=== PATIENT | female | born 1985 | race Caucasian/White ===

== ENCOUNTER 2018-10-01 09:44 | Observation (INO) | payer OTHER ==
[~2018-10-01] VITALS: Ht 172.7 cm; Wt 114.8 kg
[~2018-10-01 09:44] MED LIST: BIRTH CONTROL PO; HYDROCHLOROTH12.5 M1 PO
[2018-10-01 10:21] LABS: HEMATOCRIT 37.6 % (37.0-47.0); HEMOGLOBIN 13.2 gm/dL (12.0-15.0)
[2018-10-01 15:10] VITALS: BP 148/77
[2018-10-01] MEDS ORDERED: APRI1 EACH PO (15:47)
[2018-10-01 16:30] VITALS: BP 138/85
--- NOTE | 2018-10-01 16:32 | EKG ---
[place] [address] ELECTROCARDIOGRAM REPORT Name: MEDARDO SAHU CRYSTAL Room: [address] M.R.#: [id number] Admission: 10/01/18 Attend Phys: Magen Cheema DO Discharge: Date of : 85 Report #: [id number] THIS REPORT FOR: //name// [facility] Test Date: 2018-10-01 Test Time: 10:07:29 Pat Name: MEDARDO SAHU Department: Room: [facility] Gender: F Computer Numerical Control Machinist: : 1985 Requested By: Shahid Torres Order Number: [id number] Sheree MD: Benito Ambrose Measurements Intervals [place] Rate: 74 P: 8 IL: 140 QRS: 7 QRSD: 94 T: 1 QT: 412 QTc: 457 Interpretive Statements Sinus rhythm No previous ECG available for comparison Electronically Signed On 10-01-2018 16:32:39 CDT by Benito Ambrose [email or web address] <ELECTRONICALLY SIGNED> By: Benito Ambrose MD, [facility] 10/01/18 1632 1007 1007 Benito Ambrose MD, FACC /EPI
--- NOTE | 2018-10-01 17:44 | NUR ---
PATIENT RESTING IN BED. PATIENT HAD LAP AMBIKA THIS AM. PATIENT ARRIVED FROM PACU AND SETTLED TO ROOM THIS AFTERNOON. PATIENT HAS HAD COMPLAINTS OF PAIN X 1, TREATED WITH HYDROCODONE. PATIENT IS TOLERATING LOW FAT DIET. PATIENT DENIES ANY NEEDS AT THIS TIME. CALL LIGHT WITHIN REACH. WILL CONTINUE TO MONITOR.
[2018-10-01 20:00] VITALS: BP 130/79
[2018-10-02] VITALS: BP 115/68
[2018-10-02 04:16] LABS: ABSOLUTE LYMPHOCYTES 1.3 thou/uL (0.8-5.3); ABSOLUTE MONOCYTES 0.6 thou/uL (0.0-1.2); ABSOLUTE NEUTROPHILS 7.2 thou/uL (1.6-8.1); BASOPHILS 0.1 %; HEMOGLOBIN 12.2 gm/dL (12.0-15.0); LYMPHOCYTES 14.3 %; MCH 31.8 pg (26.0-34.0); MCV 88.4 fL (80.0-100.0); MONOCYTES 6.3 %; MPV 6.8 fl. (7.2-11.1); NUCLEATED RBCS 0 /100WBC; PLATELET COUNT* 305 thou/uL (150-400); POLYS 79.3 %; RBC 3.84 mil/uL (4.20-5.00); RDW-CV 11.8 % (10.5-14.5); WBC 9.1 thou/uL (4.0-11.0)
[2018-10-02 04:19] LABS: ALBUMIN 2.7 g/dL (3.4-5.0); CALCIUM 7.9 mg/dL (8.5-10.1); CREATININE 0.9 mg/dL (0.6-1.3); POTASSIUM 3.5 mmol/L (3.5-5.1); TOTAL BILIRUBIN 0.2 mg/dL (<0.1-1.0); TOTAL PROTEIN 6.4 g/dL (6.4-8.2)
[2018-10-02 04:25] VITALS: BP 113/70
--- NOTE | 2018-10-02 05:43 | NUR ---
ASSUMED CARE AT 1930. PATIENT RESTED THROUGH THE NIGHT. VOIDED PER TOILET. AT BEDSIDE THROUGH NIGHT. IVF/IVABX INFUSING WITHOUT DIFF. MEDICATED ONCE FOR PAIN WITH RELIEF. O2 2L/NC THROUGH NIGHT. CALL LITE IN REACH. HOURLY ROUNDS CONTINUE.
[2018-10-02 09:28] VITALS: BP 124/80
[2018-10-02] MEDS ORDERED: HYDROCODON-ACE1 EAC7 PO (12:56)
[2018-10-02] MEDS ORDERED: COLACE100 MG PO (12:57)
[2018-10-02] MEDS ORDERED: MIRALAX17 GM PO (12:58)
[2018-10-02 13:01] VITALS: BP 124/80
--- NOTE | 2018-10-02 13:09 | OP ---
[address] [address] OPERATIVE REPORT Name: ADELINAMEDARDO CRYSTAL Room: [address] M.R.#: [id number] Admission: 10/01/18 Attend Phys: Magen Cheema DO Discharge: Date of : 85 Report #: [id number] THIS REPORT FOR: //name// CC: Magen Srivastava DO DATE OF SERVICE: 10/01/2018 REFERRING PHYSICIAN: Ramo Srivastava DO PREOPERATIVE DIAGNOSIS: Symptomatic cholelithiasis. POSTOPERATIVE DIAGNOSES: Acute cholecystitis with cholelithiasis. PROCEDURE: Da Cydney robotic-assisted laparoscopic cholecystectomy with immunofluorescence imaging. SURGEON: Magen Cheema DO LABORATORY SCIENTIST: Antolin Thompson DO, PGY3, resident. SECOND AVIATION MECHANIC: ADA dumont, Zeynep Howard. ANESTHESIA: General endotracheal. ESTIMATED BLOOD LOSS: 50 mL. COMPLICATIONS: None. DESCRIPTION OF PROCEDURE: After obtaining proper consents and discussing risks and complications with the patient, she was taken to the operating room and laid in the supine position, administered general anesthesia. She was then prepped and draped in the usual sterile fashion. A timeout was performed. We confirmed the appropriate patient and procedure. Preoperative antibiotics had been given. SCDs were in place. We then made a small supraumbilical skin incision with a #11 scalpel blade. This was carried down through the skin and the subcutaneous tissue using electrocautery for hemostasis. Once the fascia was encountered, it was incised along the midline, grasped and elevated with Jocelin clamps. The peritoneum was then bluntly opened using a hemostat. 2-0 Vicryl sutures were then placed in a jujegd-gx-xbiyz fashion to secure the da Cydney camera port, which was then inserted. Once the camera port was inserted, insufflation was begun. Once insufflation was complete, full visual inspection of the intra-abdominal organs was performed. This revealed a somewhat fatty appearing liver. The gallbladder appeared to be surrounded by omental adhesions. There were no other gross abnormalities immediately identified. We then placed an 8.5 [place] [address] OPERATIVE REPORT Name: MEADRDO SAHU Room: [address] M.R.#: [id number] Admission: 10/01/18 Attend Phys: Magen Cheema DO Discharge: Date of : 85 Report #: [id number] mm trocar in the left upper quadrant. Two more 8.5 mm trocars were placed in the right upper quadrant. We then docked the da Cydney robot. Once the robot was docked, we inserted 2 Cadiere graspers in the right upper quadrant and a hook cautery in the left upper quadrant. I then broke scrub and went on console. Once on console, I was able to take down some of the adhesions to the gallbladder. The gallbladder was quite distended and thick walled with some significant pericholecystic inflammation identified. While I was attempting to take the adhesions down off the gallbladder, I did actually put a small hole into the gallbladder, which actually assisted in allowing me to grasp and elevate the gallbladder better. I immediately used the suction lockstitch front edge tape sewer to suction this fluid away. I was then able to elevate the gallbladder by grasping the fundus. I did switch over to a more aggressive grasper in order to hold onto the fundus of the gallbladder better. I then was able to dissect the remainder of the omentum down off of the gallbladder using both blunt and sharp dissection with electrocautery, I then identified Kylee's pouch. There was noted to be a quite large cystic duct lymph node. I did use immunofluorescence imaging to attempt to visualize the cystic duct; however, it appeared that the entire gallbladder was obstructed from a stone, so I was unable to see the gallbladder laid out. I was, however, able to identify the common hepatic duct and common bile duct using immunofluorescence. We still stayed well away from these structures. While I dissected the hepatoduodenal ligament down, this was done using blunt dissection until I was able to visualize the cystic duct. This cystic duct was then dissected free and was coming directly out of the gallbladder. I also identified the cystic artery and obtained a critical view. At this time, I clipped the cystic duct proximally and distally and then divided it and then identified the cystic artery, which was dissected free, clipped proximally and distally and then divided. Posterior to the cystic artery as I was bluntly dissecting, I did identify another structure that appeared to be coming directly out of the gallbladder. Using immunofluorescence imaging again on this, it just lightly lit up a green color and I traced this as far as I could distally. I used immunofluorescence imaging again and identified the common hepatic duct. I suspect that this may have been an accessory cystic duct, as it was coming directly out of the gallbladder, I could see it coming from the body of the gallbladder. We elected to clip this proximally and distally and then divide it between clips. The gallbladder was then removed from the liver bed using electrocautery as well as blunt dissection. This was quite difficult as there was quite a bit of inflammation and the gallbladder was also somewhat intrahepatic. So while we were dissecting, there was a slightly more blood loss than usual. Once the gallbladder was completely removed, I did copiously irrigate the area. I checked the cystic duct and cystic artery stumps for any leak or bleeding. I also checked the liver bed for any bleeding and cauterized some areas on the liver. I then had my family medicine physician assistant remove one of the da Cydney instruments and undock the third arm trocar, which was the far right lateral. He then grasped the gallbladder using a claw grasper. I then rescrubbed and went back to the patient's bedside. Once at the patient's bedside, we undocked the da Cydney robot. I then placed [place] [address] OPERATIVE REPORT Name: MEDARDO SAHU Room: [address] M.R.#: [id number] Admission: 10/01/18 Attend Phys: Magen Cheema DO Discharge: Date of : 85 Report #: [id number] gallbladder into an Endopouch. We then again irrigated the gallbladder fossa and as a precaution, I did put some FloSeal in the gallbladder fossa to assure hemostasis. Following this, we then removed all of the trocars under direct vision. The gallbladder was removed through the umbilical incision. We did have to enlarge the fascial defect in order to remove the gallbladder. Once all the trocars were removed and the gallbladder was removed, I then closed the umbilical fascia using 4 interrupted 0 Vicryl sutures in a whccre-ny-xgrgk fashion. The subcutaneous tissues were all injected with 0.5% Marcaine without epinephrine. Skin incisions were closed using 4-0 Monocryl subcuticular stitches. Mastisol, Steri-Strips and OpSite were placed. The patient tolerated the procedure well. Sponge, needle and instrument counts were all correct at the end of the procedure. <ELECTRONICALLY SIGNED> By: Magen Cheema DO 10/02/18 1309 1424 [id number] Cheema DO /nt
--- NOTE | 2018-10-02 15:11 | NUR ---
ASSUMED CARE OF PATIENT AT APPROX 0730. ALERT AND ORIENTED X4. ASSESSMENT COMPLETED AND CHARTED. VSS ON ROOM AIR. PAIN MANAGED WITH ORAL MEDICSATION, TOLERATING REGULAR DIET WELL. PATIENT DISCHARGED AT 1415 WITH ALL PERSONAL BELONGINGS, PRESCRIPTION AND DISCHARGE INFORMATION.
== END 2018-10-02 14:15 | disposition home or self-care (01) ==
LOC: M.SUR 09:44 → M.TBA 14:20 → M.ORTHSURG 16:24
PROVIDERS: Anesthesiology; ADMIT Surgery
DX: K80.00 Calculus of gallbladder with acute cholecystitis without obstruction (principal); Z88.1 Allergy status to other antibiotic agents